=== PATIENT | female | born 1995 | race Caucasian/White ===

== ENCOUNTER 2017-03-01 08:00 | Emergency (ER) | payer BC ==
[2017-03-01 08:15] VITALS: BP 121/69; PULSE 102; RESP 20
[2017-03-01] MEDS ORDERED: IBUPROFEN 600 MG TAB PO STA (08:29)
--- NOTE | 2017-03-01 08:44 | ED ---
ENT HPI - General Chief complaint: ENT Stated complaint: poss strep throat Time Seen by Provider: 03/01/17 08:17 Source: patient, RN notes reviewed Mode of arrival: ambulatory Limitations: no limitations - History of Present Illness Initial comments: Patient a 21-year-old female presents emergency room for evaluation of sore throat. Patient states her pain began last night. Patient states she has a history of strep throat. Patient states she had strep throat 3 times last year. Patient states this feels very similar to strep throat. Patient states she has white patches over both of her tonsils. Patient states it hurts to swallow. Patient states she's also had a fever and chills. Patient denies taking any Tylenol or Motrin today. Patient denies nausea or vomiting. Patient denies headache or dizziness. Patient denies chest pain or shortness of breath. Patient states she is up-to-date on immunizations. - Related Data Previous Rx's Medication Instructions Recorded Amoxicillin 500 mg PO Q12HR 7 Days 03/01/17 Allergies Allergy/AdvReac Type Severity Reaction Status Date / Time No Known Allergies Allergy Verified 03/01/17 08:15 Review of Systems ROS Statement: Those systems with pertinent positive or pertinent negative responses have been documented in the HPI. ROS Other: All systems not noted in ROS Statement are negative. Past Medical History Additional Past Medical History / Comment(s): strep throat History of Any Multi-Drug Resistant Organisms: None Reported Past Surgical History: No Surgical Hx Reported Past Psychological History: Anxiety Smoking Status: Current every day smoker Past Alcohol Use History: None Reported Past Drug Use History: None Reported General Exam - General Exam Comments Initial Comments: Sitting in exam room, no distress. Limitations: no limitations General appearance: alert, in no apparent distress Head exam: Present: atraumatic, normocephalic, normal inspection Eye exam: Present: normal appearance Expanded Throat exam: tonsillar erythema, tonsillomegaly, tonsillar exudate Neck exam: Present: normal inspection Respiratory exam: Present: normal lung sounds bilaterally. Absent: respiratory distress Cardiovascular Exam: Present: regular rate, normal rhythm, normal heart sounds Extremities exam: Present: normal inspection Back exam: Present: normal inspection Neurological exam: Present: alert, oriented X3, CN II-XII intact, normal gait Psychiatric exam: Present: normal affect, normal mood Skin exam: Present: warm, dry, intact, normal color. Absent: rash Course Vital Signs 03/01/17 08:11 Temperature 101.4 F H Pulse Rate 102 H Respiratory 20 Rate Blood Pressure 121/69 O2 Sat by Pulse 98 Oximetry Medical Decision Making - Medical Decision Making Patient is a 21-year-old female presents emergency room for evaluation sore throat. Patient has a history of strep throat states this feels similar. Patient does have erythematous swollen tonsils with exudates. Will treat patient with amoxicillin. Advised patient to follow-up with primary care provider in 1-2 days for reevaluation. Patient states she understands everything that was discussed with her. Return parameters discussed. Case discussed with Dr. Reyes. Disposition Clinical Impression: Strep sore throat Disposition: HOME SELF-CARE Condition: Good Instructions: Strep Throat (ED) Additional Instructions: Taking antibiotics as directed. Alternate Tylenol and Motrin every 3 hours for fever/discomfort. Saltwater gargles. Please follow up with primary care provider in 1-2 days. If any new symptom arises or symptoms worsen, return to ER as soon as possible. Prescriptions: Amoxicillin 500 mg PO Q12HR 7 Days Referrals: None,Stated [Primary Care Provider] - 1-2 days Time of Disposition: 08:43
[2017-03-01 09:50] VITALS: TEMP 101.1
== END 2017-03-01 08:57 | disposition home or self-care (01) ==
LOC: EC 08:00
DX: J02.0 Streptococcal pharyngitis (principal); F17.200 Nicotine dependence, unspecified, uncomplicated
CPT/HCPCS: 87081; 87430; 99283

== ENCOUNTER 2017-05-27 07:55 | Day surgery (SDC) | payer BC ==
[2017-05-20 14:54] VITALS: BMI 21.6
[~2017-05-27 07:55] MED LIST: DEXAMETHASONE SOD PHOSPHATE 10 MG/ML 1 ML VIAL IV ONE; DEXAMETHASONE SOD PHOSPHATE 4 MG/ML 1 ML VIAL IV ONE; FAMOTIDINE 20 MG/2 ML VIAL IV ONE; LIDOCAINE 1% 20 ML VIAL (10MG/ML) FOR IV START INTRADERMA PRN; MIDAZOLAM 2 MG/2 ML VIAL IV PRN; ONDANSETRON 4 MG/2 ML VIAL IVP ONE; Pre Op ABX Message 1 EACH MISC MISCELLANE ONE; SCOPOLAMINE 1.5MG/72HR PATCH TRANSDERM ONE
[2017-05-27 09:24] LABS: Glucose,Whole Blood 88 mg/dL (75-99)
[2017-05-27] MEDS: LACTATED RINGERS 1,000 ML IV SCH ×2 (09:25→09:46)
[2017-05-27] MEDS ORDERED: LIDOCAINE 1% INJ 10MG/ML (20 ML MDV) ONE (09:49)
[2017-05-27] MEDS ORDERED: HYDROmorphone (PF) 1 MG/ML ONE (09:49)
[2017-05-27] MEDS ORDERED: fentaNYL (PF) 50 MCG/ML 2 ML AMP ONE (09:49)
[2017-05-27] MEDS ORDERED: SUCCINYLCHOLINE CHLORIDE 100 MG/5 ML SYR IV ONE (09:49)
[2017-05-27] MEDS ORDERED: MIDAZOLAM 2 MG/2 ML VIAL ONE (09:49)
[2017-05-27] MEDS ORDERED: PROPOFOL 10 MG/ML 20 ML VIAL IV ONE (09:49)
[2017-05-27] MEDS ORDERED: LACTATED RINGERS 1,000 ML IV ONE (10:18)
--- NOTE | 2017-05-27 10:20 | P.OP ---
Date of Procedure: 05/27/17 Preoperative Diagnosis: Chronic tonsillitis Tonsillar hypertrophy Postoperative Diagnosis: Same Procedure(s) Performed: Tonsillectomy Implants: Anesthesia: DEANA Surgeon: Christopher Herrera Estimated Blood Loss (ml): 5 Pathology: other (Bilateral tonsils) Condition: stable Disposition: PACU Indications for Procedure: This is a 21-year-old white female whose had difficulties with chronic and recurrent tonsillitis requiring multiple antibiotics. Operative Findings: Tonsils +3 bilaterally Description of Procedure: Patient was brought in the operative suite and placed in a supine position. The patient underwent induction of general anesthesia with oral endotracheal intubation without difficulty. The patient was prepped and draped in usual aseptic fashion. McIvor mouthgag was placed. The soft palate was palpated and no submucous cleft was noted. Left tonsil was grasped with a curved Allis clamp and dissected from the tonsillar fossa in a superior to inferior direction using both blunt and electrocautery dissection in a superior to inferior direction until the tonsil was removed. Once the tonsils removed hemostasis was gained with suction cautery. Once hemostasis was obtained attention was turned to the right where the right tonsil was removed exactly as the left had been. Once this tonsils removed hemostasis was gained with suction cautery. Once hemostasis was obtained and remained good in both tonsillar fossa the patient was suctioned in oral gastric fashion the McIvor mouth gag was removed and the patient was allowed to emerge from general anesthesia having tolerated procedure well. Patient was extubated in the operating suite and transferred to postop recovery area in satisfactory condition.
[2017-05-27 10:44] VITALS: TEMP 97.2
[2017-05-27] MEDS: HYDROmorphone 1 MG/ML 1 ML SYRINGE IVP PRN ×3 (11:03→11:21)
[2017-05-27] MEDS ORDERED: ONDANSETRON 4 MG/2 ML VIAL IVP ONE (11:24)
[2017-05-27 11:59] VITALS: RESP 18
[2017-05-27 13:06] VITALS: BP 120/69; PULSE 75
== END 2017-05-27 13:38 | disposition home or self-care (01) ==
LOC: OR 07:55
PROVIDERS: ATTEND Otolaryngology
DX: J35.01 Chronic tonsillitis (principal); F17.200 Nicotine dependence, unspecified, uncomplicated
CPT/HCPCS: 81025; 88304; 42826; J2250; J1100; J2405; J2001; J3010; J1170; J0330; J2704